=== PATIENT | male | born 1975 | race Hispanic/Latino ===

== ENCOUNTER 2017-01-14 12:17 | Emergency (ER) | payer OTHER ==
[~2017-01-14] VITALS: Ht 157.5 cm; Wt 63.5 kg
--- NOTE | 2017-01-14 12:46 | ED HEAD/FACIAL INJ COMPLAINT ---
History of Present Illness General Chief Complaint: Laceration Procedure Stated Complaint: FACE LAC Source: patient, family Exam Limitations: no limitations Vital Signs & Intake/Output Vital Signs & Intake/Output Vital Signs Date Time Temp Pulse Resp B/P Pulse O2 O2 Flow FiO2 Ox Delivery Rate 01/14 1506 84 18 113/75 96 Room Air 01/14 1321 Room Air Room Air 01/14 1223 95.8 101 18 122/75 95 Room Air ED Intake and Output 01/15 0000 01/14 1200 Intake Total Output Total Balance Patient 140 lb Weight Allergies Coded Allergies: No Known Allergies (01/14/17) Reconcile Medications Cephalexin (Keflex) 500 MG CAPSULE 1 CAP PO TID wound prophylaxis Ibuprofen 800 MG TABLET 1 TAB PO Q8 PRN PAIN Tramadol HCl 50 MG TABLET 1-2 TAB PO Q6 PRN pain Triage Note: 41 Y/O MALE PRESENTS WITH MULTIPLE LACERATIONS TO FACE S/P WORKING WITH CHAIN SAW AND STRIKING FACE. STATES IT GOT CAUGHT ON LONG SLEEVE AND THEN HIT FACE. NO INVOLVEMENT OF EAR, OR INSIDE MOUTH. LACERATION(S) TO L CHEEK/CHIN. PT UNSURE OF LAST TETANUS. 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 yes HPI: Patient is a 41-year-old male presents complaining of laceration to the left side of his face. Patient was using a chain saw when the chainsaw kicked back, struck his left upper extremity than the left side of his face. Patient was wearing a longsleeved shirt, did not sustain a laceration to his left arm. Injury occurred just prior to arrival. Patient is unsure of his last tetanus immunization. Pain is currently 1-2 out of 10, worsens with palpation. Patient denies decreased range of motion of his jaw, intraoral trauma, neck pain, loss of consciousness. (KINJAL GOODWIN) Past History Travel History Traveled to [place] past 21 day No Medical History Any Pertinent Medical History? none Neurological: NONE EENT: NONE Cardiovascular: NONE Respiratory: NONE Gastrointestinal: NONE Hepatic: NONE Renal: NONE Musculoskeletal: NONE Psychiatric: NONE Endocrine: NONE Blood Disorders: NONE Cancer(s): NONE Surgical History Surgical History: non-contributory Psychosocial History What is your primary language Kiswahili Tobacco Use: Never used Family History Hx Contributory? No (KINJAL GOODWIN) Review of Systems Review of Systems Constitutional: Denies: chills, fever. EENTM: Reports: no symptoms. Denies: throat pain, tooth pain. Respiratory: Denies: cough, short of breath. Cardiovascular: Denies: chest pain. GI: Denies: abdominal pain. Genitourinary: Reports: no symptoms. Musculoskeletal: Denies: back pain, neck pain. Skin: Reports: see HPI. Hematologic/Endocrine: Reports: bleeding (from wound). Immunologic/Allergic: Denies: splenectomy. (KINJAL GOODWIN) Physical Exam Physical Exam General Appearance: well developed/nourished, alert, awake Head: 10 cm laceration to the left mandibular area. No visible ductile laceration. No visible bone involvement, no visible or palpable foreign bodies Eyes: Bilateral: normal appearance, PERRL, EOMI. Ears, Nose, Throat: hearing grossly normal Neck: normal inspection, supple, full range of motion, trachea midline Respiratory: no respiratory distress Back: normal inspection, normal range of motion Extremities: normal inspection, normal capillary refill, normal range of motion, no edema Psychiatric: awake, alert, oriented x 3 Cranial Nerves: normal hearing, normal speech, PERRL Coordination/Gait: normal gait Motor/Sensory: mild decreased sensation to light touch surrounding the wounds. Skin: warm/dry Lymphatic: no anterior cervical tyesha Diagram Head: 1) 10 cm laceration with 1 cm gaping in the lateral with multiple branching medially (KINJAL GOODWIN) Progress Differential Diagnosis: laceration, foreign body, nerve laceration, duct laceration, open fracture Plan of Care: Orders Procedure Date/time Status CT MAXILLOFACIAL W/O CON 01/14 1242 Active Current Medications Sig/Leona Start time Last Medication Dose Stop Time Status Admin Cefazolin Sodium 1,000 MG ONCE ONE 01/14 124 UNVr (Kefzol-Ancef Inj) 01/14 124 Tetanus/Diphtheria 0.5 ML ONCE ONE 01/14 124 UNVr Toxoids Adsorbed 01/14 124 (Decavac) Discussed with and evaluated by Dr. Lopez. Small arterial bleed in center of wound. Did not respond to cautery by silver nitrate or electrocautery. 1 vicryl stitch placed to tie off bleeding blood vessel. Dr. Lopez discussed patient with Dr. Monterroso: close the wounds and have patient follow up in the [place] office tomorrow. See procedure note. 46 simple interrupted sutures placed. Procedure well tolerated by patient. (KINJAL GOODWIN) Diagnostic Imaging: Discussed w/RAD: CT Scan. Radiology Impression: PATIENT: OPLLY MCNEAL PRESENT AGE: 41 PATIENT ACCOUNT NO: [id number] : 75 LOCATION: [facility] ORDERING PHYSICIAN: KINJAL ALEXIS SERVICE DATE: 01/14/17 EXAM TYPE: CAT - CT MAXILLOFACIAL W/O CON EXAMINATION: CT MAXILLOFACIAL WITHOUT CONTRAST CLINICAL INFORMATION: Chain saw laceration to left side of face. COMPARISON: None TECHNIQUE: Multidetector helical imaging was performed in the axial plane with generation of coronal and sagittal reformatted images. DLP: 758 mGy-cm FINDINGS: OSSEOUS STRUCTURES: There is no acute maxillofacial fracture. The pterygoid plates are intact. The lamina papyracea are intact. The orbital rims are intact. The zygomatic arches are intact. Significant bandaging overlies the left mandibular region with no underlying fracture. There is associated soft tissue swelling. FRONTAL SINUSES AND DRAINAGE PATHWAYS: Normal. MAXILLARY SINUSES AND DRAINAGE PATHWAYS: Normal. ETHMOID SINUSES: Normal. SPHENOID SINUSES AND DRAINAGE PATHWAYS: Normal. ADDITIONAL RELEVANT FINDINGS: The ostiomeatal complexes are well-aerated. The nasal passages are clear. The carotid canals are normally covered by bone. The ethmoid roofs are symmetric. Multiple absent teeth. The TMJs and orbits are normal. The visualized mastoid air cells are clear. Limited evaluation demonstrates no acute intracranial findings. No radiopaque foreign body. IMPRESSION: Soft tissue injury overlying the left mandibular region. No underlying acute fracture. No radiopaque foreign body. DICTATED BY: MUMTAZ RAYMUNDO MD DATE/TIME DICTATED:01/14/171305 PROGRAM AIDE GROUP WORK:DIANE DATE/TIME TRANSCRIBED:01/14/171305 CONFIDENTIAL, DO NOT COPY WITHOUT APPROPRIATE AUTHORIZATION. <Electronically signed in Other Vendor System> SIGNED BY: MUMTAZ RAYMUNDO MD 01/14/17 1311 (KINJAL GOODWIN) Departure Departure Time of Disposition: 1501 Disposition: HOME OR SELF CARE Condition: Stable Clinical Impression Primary Impression: Facial laceration Qualifiers: Encounter type: initial encounter Qualified Code: S01.81XA - Laceration without foreign body of other part of head, initial encounter Referrals: ALEE MONTERROSO MD Additional Instructions: Follow-up with Dr. Monterroso in the [place] office tomorrow. Call the office tomorrow morning for appointment to be seen tomorrow. Return to the emergency department if pus from the wound, redness spreading from the wound, fevers, or worsening of symptoms. Departure Forms: Customer Survey General Discharge Information Prescriptions: Current Visit Scripts Cephalexin (Keflex) 1 CAP PO TID #21 CAP Ibuprofen 1 TAB PO Q8 PRN PAIN #20 TAB Tramadol HCl 1-2 TAB PO Q6 PRN pain #15 TAB (KINJAL GOODWIN) PA/WOOD GOUGER Co-Sign Statement Statement: ED Attending supervision documentation- [] I saw and evaluated the patient. I have also reviewed all the pertinent lab results and diagnostic results. I agree with the findings and the plan of care as documented in the PA's/WOOD GOUGER's documentation. [X] I have reviewed the ED Record and agree with the PA's/WOOD GOUGER's documentation. [] Additions or exceptions (if any) to the PAs/WOOD GOUGER's note and plan are summarized below: [] (ASHELY ZEPEDA,VENESSA) Procedures Laceration/Wound Repair Progress: Area prepped with chlorhexidine and Betadine. 1% lidocaine with epinephrine 12 mL injected. 1 suture placed to tie off small bleeding artery of Vicryl 6-0. Irrigated with 1000ml of sterile water. 46 simple interrupted 6-0 monosof sutures placed. 1.5 hours spent performing procedure. (KINJAL GOODWIN)
--- NOTE | 2017-01-14 13:11 | CT SCAN REPORT ---
EXAMINATION: CT MAXILLOFACIAL WITHOUT CONTRAST CLINICAL INFORMATION: Chain saw laceration to left side of face. COMPARISON: None TECHNIQUE: Multidetector helical imaging was performed in the axial plane with generation of coronal and sagittal reformatted images. DLP: 758 mGy-cm FINDINGS: OSSEOUS STRUCTURES: There is no acute maxillofacial fracture. The pterygoid plates are intact. The lamina papyracea are intact. The orbital rims are intact. The zygomatic arches are intact. Significant bandaging overlies the left mandibular region with no underlying fracture. There is associated soft tissue swelling. FRONTAL SINUSES AND DRAINAGE PATHWAYS: Normal. MAXILLARY SINUSES AND DRAINAGE PATHWAYS: Normal. ETHMOID SINUSES: Normal. SPHENOID SINUSES AND DRAINAGE PATHWAYS: Normal. ADDITIONAL RELEVANT FINDINGS: The ostiomeatal complexes are well-aerated. The nasal passages are clear. The carotid canals are normally covered by bone. The ethmoid roofs are symmetric. Multiple absent teeth. The TMJs and orbits are normal. The visualized mastoid air cells are clear. Limited evaluation demonstrates no acute intracranial findings. No radiopaque foreign body. IMPRESSION: Soft tissue injury overlying the left mandibular region. No underlying acute fracture. No radiopaque foreign body.
[2017-01-14] MEDS ORDERED: TRAMADOL HCL50 M1 PO (15:02)
[2017-01-14] MEDS ORDERED: KEFLEX500 M1 PO (15:02)
[2017-01-14] MEDS ORDERED: IBUPROFEN800 M1 PO (15:02)
[2017-01-14 15:06] VITALS: BP 113/75
== END 2017-01-14 15:09 ==
LOC: ERH 12:17
DX: S01.81XA Laceration without foreign body of other part of head, initial encounter (principal); W29.3XXA Contact with powered garden and outdoor hand tools and machinery, initial encounter; Y93.9 Activity, unspecified; Y92.9 Unspecified place or not applicable
CPT/HCPCS: 90471; 90714; 96374; J0690